=== PATIENT | male | born 1950 | race Two or more races ===

== ENCOUNTER 2017-09-23 13:58 | Emergency (ER) | payer BC ==
[~2017-09-23] VITALS: Ht 167.6 cm; Wt 84.8 kg
[2017-09-23 14:05] VITALS: BP 123/61
== END 2017-09-23 16:40 | disposition home or self-care (01) ==
LOC: ED 13:58
DX: L03.115 Cellulitis of right lower limb (principal); I10 Essential (primary) hypertension; E11.9 Type 2 diabetes mellitus without complications

== ENCOUNTER 2018-12-07 18:07 | Inpatient (IN) | payer OTHER ==
[~2018-12-07] VITALS: Ht 170.2 cm; Wt 87.0 kg
[2018-12-07 20:44] LABS: BASOPHIL % 0.4 % (0-2); PLATELET COUNT 266 x10^3mcL (130-400)
--- NOTE | 2018-12-07 20:48 | NUR ---
PT RESTING IN BED, AAOX4 WITH C/O 4/10 PAIN TO LT LOWER LEG/LT MIGUEL WITH REDNESS/SWELLING X 10 DAYS S/P BEING HIT BY FALLING SHEET METAL WHILE WORKING. PT NOTED WITH AN OPEN ABRASION TO LT MIGUEL/LLE WITH LIGHT BROWN DRAINAGE AND REDNESS WITH SWELLING TO LLE. PT DENIES ANY FEVER/CHILLS, N/V/D/C, RESP ILLNESS, OR URINARY PROBLEMS AT THIS TIME.
[2018-12-07 20:55] LABS: RED CELL DISTRIBUTION WIDTH 14.9 % (11.5-14.5)
[2018-12-07 20:59] LABS: CALCIUM 7.5 mg/dL (8.5-10.1); CARBON DIOXIDE 24.2 mmol/L (21-32); POTASSIUM SERUM 4.6 mmol/L (3.5-5.1)
[2018-12-07 21:04] LABS: BILIRUBIN TOTAL 0.18 mg/dL (0.20-1.00); C REACTIVE PROTEIN 0.5 mg/dL (<=0.9)
[2018-12-07 22:24] LABS: CHOLESTEROL/HDL RATIO 3.5; MAGNESIUM 2.1 mg/dL (1.8-2.4)
--- NOTE | 2018-12-07 22:36 | NUR ---
PT RESTING IN BED WITH FAMILY AT BEDSIDE. NO SIGNS OF DISTRESS.
[2018-12-07] MEDS ORDERED: METFORMIN HYDR500 M1 PO (22:51)
[2018-12-07] MEDS ORDERED: AVAPRO150 MG PO (22:53)
[2018-12-07] MEDS ORDERED: VITAMIN D32000 I2 PO (22:54)
--- NOTE | 2018-12-07 23:20 | NUR ---
REPORT GIVEN TO ARYA NIEVES.
[2018-12-08 00:17] VITALS: BP 167/88
--- NOTE | 2018-12-08 00:31 | NUR ---
RECEIVED PT FROM ER, PT ADMIT FOR LEFT LEG CELLULITIS, PT IS A/O X4, VERBAL RESPONSIVE, LUNG SOUND CLEAR BILATERAL,NO COUGH, NO SOB, PT DENY ANY CHEST PAIN OR DISCOMFORT, BOWEL SOUND PRESENT ALL 4 QUADRANTS, NO DISTENTION, NO TENDER. PEDAL PULSE PRESENT BOTH FEET, +1 RLE, +2 LLE, THERE IS OPEN ABRASION AT LEFT LOWER LEG SURROUND WITH ERYTHEMA, NO DRAINAGE NOTED. RLE HAS DARK DISCOLORATION. IV AT LEFT FA, NO LEAKING, NO INFILTRAITON. ALL ADSL ASSIST, ALL NEED MET, CALL LIGHT IN REACH, WILL CONTINUE TO MONITOR.
--- NOTE | 2018-12-08 01:25 | NUR ---
IVF NS STARTED @ 100CC/HR IV ACCESS LFA PATENT NON INFIL, PT DENIES PAIN, NO DISTRESS, AMBULATES TO THE BATHROOM SLOW BUT STEADY GAIT, CONT TO MONITOR.
--- NOTE | 2018-12-08 04:08 | NUR ---
PT ASLEEP NO S/SX OF PAIN OR DISCOMFORTS, BLE ELEVATED WITH PILLOWS, CHECKED AT INTERVALS.
--- NOTE | 2018-12-08 06:56 | NUR ---
NO SIGNIFICANT CHANGE DURING THE SHIFT, WILL ENDORSE TO INCOMING SHIFT FOR F/U CARE.
[2018-12-08 07:02] LABS: CALCIUM 7.6 mg/dL (8.5-10.1); CARBON DIOXIDE 24.3 mmol/L (21-32); CREATININE SERUM 1.5 mg/dL (0.7-1.3); POTASSIUM SERUM 4.9 mmol/L (3.5-5.1)
[2018-12-08 07:03] LABS: BASOPHIL % 0.3 % (0-2); PLATELET COUNT 253 x10^3mcL (130-400)
--- NOTE | 2018-12-08 07:10 | NUR ---
RECEIVED REPORT FROM ARYA RN, PT IN BED W/ NO ACUTE DISTRESS
--- NOTE | 2018-12-08 07:16 | NUR ---
PT IN BED, AXOX4. VERBAL, ABLE TO MAKE NEEDS KNOWN, CALM AND COOPERATIVE, LIAN, NO FACIAL DROOP/SLUURED SPEECH, RESP EVEN, NO SOB/COUGH AT THIS TIME, CHEST RISE SYMMETRICALLY, DENIED CP/WATERS/PALPITATION, DENIED N/V/D, MEDSURG, ABD ROUND AND NON-TENDER TO TOUCH, PALP PULSES, CAP REFILL <3S, +1 EDEMA TO RLE, +2 EDEMA TO LLE, INCONTINENT, AMBULATORY W/ ASSIST, IV PATENT AND INFUSING WELL, DRESSING CDI, SKIN D/W/C, SEE SKIN ASSESSMENT, FAMILY AT BEDSIDE, ALL NEEDS ADDRESSED AT THIS TIME, SAFETY PROTOCOL FOLLOWED, CONTINUE TO MONITOR
--- NOTE | 2018-12-08 07:16 | NUR ---
PT CONTINENT, BRP W/ MINIMAL ASSISTANCE
[2018-12-08 07:17] LABS: RED CELL DISTRIBUTION WIDTH 14.8 % (11.5-14.5)
[2018-12-08 08:52] VITALS: BP 158/74
--- NOTE | 2018-12-08 09:48 | NUR ---
AM MED GIVEN PER EMAR, TOLERATD WELL, NO ASE NTOED AT THIS TIME, EDUCATION R/T MED AND ASE GIVEN , VERBALLY UNDERSTANDING, CONTINUE TO MONITOR
--- NOTE | 2018-12-08 11:56 | NUR ---
PT AMBULATED ALONG THE HALLWAY W/ FAMILY, IV TEMPORARILY HEPLOCKED PER PT REQUESTED
--- NOTE | 2018-12-08 15:30 | NUR ---
VOID X 1, AMBUALTORY ON HALLWAY W/ FAMILY, IN NO ACUTE DISTRESS
[2018-12-08 17:08] VITALS: BP 161/87
--- NOTE | 2018-12-08 17:23 | NUR ---
PT RESTING IN BED, VERBAL, LIBERIAN, FAMILY AT BEDSIDE, ABLE TO MAKE NEEDS KNOWN, RESP EVEN, NO SOB/COUGH, DENIEC CP/WATERS/PALPITATION, DENIEC N/V/D, AMBULATORY, CONTINENT, IV PATENT AND INFUSIGN WELL, ALL NEEDS ADDRESSED AT THIS TIME, SAFETY PROTOCOL FOLLOWED, WILL ENDORSE TO ONCOMING RN
--- NOTE | 2018-12-08 19:13 | NUR ---
PT HAD WOUND CARE DONE AT BEDSIDE, TOLERATED WELL, REPORTED NO PAIN/DISCOMFORT, FEET ELEVATED ON PILLOWS, SCDs APPLIED, COMFORT IN BED, IN NO ACUTER DISTRESS, DR NUGENT CALLED BACK R/T FAMILY REQUEST OF US RENAL TEST DURING STAY FOR KIDNEY FX CHECK, SAID WILL ENDORSE TO THE [facility] TO F/U TOMORROW MORNING, FAMILY AND PT MADE AWARE, CHARGE NURSE RODERICK MADE AWARE
--- NOTE | 2018-12-08 19:47 | NUR ---
AAO X4 VERBAL DIVEHI SPEAKING ONLY DENIES PAIN NO DISTRESS LUNGS CTA, SATURATING 98% RA, AMBULATES SLOWLY STEADY BALANCE, INTACT DRESSING TO LT LOWER LEG NO SIGNS OF DRAINAGE, BLE ELEVATED WITH PILLOW, CONT ON ATB IV ORDERED NO ADV REACTION, SHIFT ASSESSMENT DONE, UPDATED CURRENT TX PLAN, AWARE OF CURRENT MEDS CONSULT DIET AND TX ORDER, FAMILY AT BEDSIDE FOR VISIT, CONT TO MONITOR, CALL LIGHT AT REACH.
[2018-12-08 20:56] VITALS: BP 157/68
--- NOTE | 2018-12-08 22:50 | NUR ---
PT ASLEEP HANGED IV ATB VANCOMYCIN ORDERED, NO ADV REACTION, CHECKED AT INTERVALS.
[2018-12-09 06:15] VITALS: BP 154/81
[2018-12-09 06:41] LABS: BASOPHIL % 0.4 % (0-2); PLATELET COUNT 258 x10^3mcL (130-400)
[2018-12-09 06:47] LABS: CALCIUM 7.7 mg/dL (8.5-10.1); CARBON DIOXIDE 24.4 mmol/L (21-32); CHLORIDE SERUM 111 mmol/L (98-107); CREATININE SERUM 1.2 mg/dL (0.7-1.3); GFR1 > 60 mL/min; GLUCOSE SERUM 109 mg/dL (74-106); MAGNESIUM 1.9 mg/dL (1.8-2.4); PHOSPHOROUS 3.1 mg/dL (2.5-4.9); POTASSIUM SERUM 4.9 mmol/L (3.5-5.1); SODIUM SERUM 141 mmol/L (136-145)
--- NOTE | 2018-12-09 06:55 | NUR ---
NO SIGNIFICANT CHANGE OF CONDITION DURING THE SHIFT, SLEPT WELL, IVF INFUSING IV ATB ADMIN ORDERED NO ADV REACTION, ENCOURAGED TO ELEVATE BLE WITH PILLOWS AMBULATES TO THE BATHROOM, WILL ENDORSE TO INCOMING SHIFT FOR F/U CARE.
[2018-12-09 06:56] LABS: RED CELL DISTRIBUTION WIDTH 14.9 % (11.5-14.5)
--- NOTE | 2018-12-09 07:10 | NUR ---
RECEIVED REPORT FROM ARYA NIEVES, PT SLEEPING IN BED, IN NO APPARENT ACUTE DISTRESS
--- NOTE | 2018-12-09 07:30 | NUR ---
PT IN BED, AXOX4. VERBAL, [place], ABLE TO MAKE NEEDS KNOWN, CALM AND COOPERATIVE, PERRLA, NO FACIAL DROOP/SLURRED SPEECH, RESP EVEN, NO SOB/COUGH AT THIS TIME, RA, CHEST RISE SYMMETRICALLY, DENIED CP/WATERS/PALPITATION, DENIED N/V/D, MEDSURG, ABD ROUND AND NON-TENDER TO TOUCH, PALP PULSES, CAP REFILL <3S, +1 EDEMA TO RLE, +2 EDEMA TO LLE, CONTINENT, AMBULATORY W/ MINIMAL ASSIST, IV PATENT AND INFUSING WELL, DRESSING CDI, SKIN D/W/C, SEE SKIN ASSESSMENT, SCDs, FAMILY AT BEDSIDE, ALL NEEDS ADDRESSED AT THIS TIME, SAFETY PROTOCOL FOLLOWED, CONTINUE TO MONITOR
--- NOTE | 2018-12-09 08:46 | NUR ---
PT REPORTED (L) LEG PAIN R/T WOUND, 09/03, DULL, MEDICATED PER PRN EMAR, TAKEN WELL, EDUCATED R/T ASE AND MED, VERBALLY UNDERSTANDING, RESTING IN BED, AT BEDSIDE, CONTINUE TO MONITOR
[2018-12-09 08:48] VITALS: BP 136/73
--- NOTE | 2018-12-09 09:04 | NUR ---
AM MED GIVEN PER EMAR, TOLERATD WELL, NO ASE NTOED AT THIS TIME, EDUCATION R/T MED AND ASE GIVEN , VERBALLY UNDERSTANDING, CONTINUE TO MONITOR
--- NOTE | 2018-12-09 09:17 | NUR ---
SEEN BY SUPERINTENDENT CUSTODIAN JANITOR ELIAN JOSEPH, REPORTED TO SUPERINTENDENT CUSTODIAN JANITOR R/T PT AND FAMILY REQUEST FOR F/U US RENAL FX DURING STAY, SUPERINTENDENT CUSTODIAN JANITOR SAID PT WILL F/U W/ US RENAL FX AFTER DC HOME OUTPATIENT SERVICE W/ PCP, NOT DURING HOSPITALIZATION, PT AND FAMILY MADE AWARE, CHARGE NURSE BAN MADE AWARE
--- NOTE | 2018-12-09 11:31 | NUR ---
IV TO LFA NOTED INFILTRATED, NO REDNESS/INFLAMATION NOTED AT SITE, IV REMOVED, IV CATH TIP INTACT, NO ACTIVE BLEEDING NOTED, NEW IV STARTED TO RFA, 22G, PATENT AND INFUSING WELL, NO INFILTRATION NOTED AT THIS TIME, PT AND FAMILY MADE AWARE, CONTINUE IV THERAPY DAHLIA EMAR
--- NOTE | 2018-12-09 12:36 | NUR ---
VOID X 1, PT AMBULATED ON HALLWAY W/ FAMILY, IN NO ACUTE DISTRESS, DRESSING CDI, SKIN C/D/W
[2018-12-09 16:39] VITALS: BP 178/79
--- NOTE | 2018-12-09 17:05 | NUR ---
PT HAD WOUND CARE DONE AT BEDSIDE, TOLERATED WELL, REPORTED NO PAIN/DISCOMFORT, FEET ELEVATED ON PILLOWS, SCDs APPLIED, COMFORT IN BED, IN NO ACUTER DISTRESS, PIC OF WOUND TAKEN AND KEPT IN CHART
--- NOTE | 2018-12-09 17:32 | NUR ---
BP NOTED 175/79 (110), 63, 97.7, 99% AT RA, 18, 0/10, PRN MED MEDICATED PER EMAR, TOLERATED WELL, EDUCATION R/T PRN MED AND ASE GIVEN PT PT AND FAMILY AT BEDSIDE, VERBALLY UNDERSTANDING, NO FURTHER CONCERN NEEDED AT THIS TIME, CONTINUE TO MONITOR
--- NOTE | 2018-12-09 17:48 | NUR ---
PT RESTING IN BED, MOVED TO ROOM 251B, PT AND FAMILY AWARE, VERBAL, [place], FAMILY AT BEDSIDE, ABLE TO MAKE NEEDS KNOWN, RESP EVEN, NO SOB/COUGH, DENIED CP/WATERS/PALPITATION, DENIEC N/V/D, AMBULATORY, CONTINENT, IV PATENT AND INFUSING WELL, ALL NEEDS ADDRESSED AT THIS TIME, SAFETY PROTOCOL FOLLOWED, WILL ENDORSE TO ONCOMING RN
[2018-12-09 19:16] VITALS: BP 166/67
[2018-12-09 19:57] VITALS: BP 156/74
--- NOTE | 2018-12-09 20:19 | NUR ---
SHIFT REASSESSMENT DONE.PATIENT ALERT AND ORIENTED.MAKE NEEDS KNOWN,LOTS OF FAMILY MEMBER AT BEDSIDE.MEDSURG PATIENT.LLE ABRASION,RLE DISCOLORATIN,WOUND CULTURE PENDING RESULT.ELEVATED FEET.VOIDING/BRP.CALL LIGHT IN REACH.IVF INFUSING.IV SITE LFA.PATENT.CALL LIGHT IN REACH.
--- NOTE | 2018-12-09 23:34 | NUR ---
ALL PM MEDS GIVEN WITH NO INCIDENT,BLOOD SUGAR GOOD.ATB SCHEDULE GIVEN.
--- NOTE | 2018-12-10 03:16 | NUR ---
CHECKED AT INTERVALS FOR NEEDS AND SAFETY.
[2018-12-10 04:38] VITALS: BP 160/83
--- NOTE | 2018-12-10 05:06 | NUR ---
BRP RESTROOM,NO INCIDENT.IVF INFUSING WELL.
--- NOTE | 2018-12-10 06:04 | NUR ---
PATIENT BP 160/83.GIVEN APRESOLINE,PROTOCOL,WILL RECHECKED AFTER.
--- NOTE | 2018-12-10 06:32 | NUR ---
LATEST BP 149/80.NO SYMPTOMS PRESENTED
[2018-12-10 06:34] VITALS: BP 149/80
--- NOTE | 2018-12-10 06:35 | NUR ---
I AND O MEASURED.NO DISTRESS THIS SHIFT.WILL ENDORSE TO NEXT SHIFT.
[2018-12-10 06:38] LABS: BASOPHIL % 0.7 % (0-2); PLATELET COUNT 262 x10^3mcL (130-400)
[2018-12-10 06:47] LABS: CARBON DIOXIDE 24.2 mmol/L (21-32); CHLORIDE SERUM 112 mmol/L (98-107); CREATININE SERUM 1.1 mg/dL (0.7-1.3); GFR1 > 60 mL/min; GLUCOSE SERUM 107 mg/dL (74-106); POTASSIUM SERUM 4.8 mmol/L (3.5-5.1); SODIUM SERUM 144 mmol/L (136-145)
[2018-12-10 06:53] LABS: RED CELL DISTRIBUTION WIDTH 14.8 % (11.5-14.5)
[2018-12-10 08:34] VITALS: BP 147/72
--- NOTE | 2018-12-10 14:38 | NUR ---
I SPOKE TO CLASSIFICATIONS OFFICER CC/CM ON THE PHONE DUE TO HIGH BP, SHE ADVISED TO CONTINUE WITH PRN MEDICATION AND MONITOR, MEDICATION GIVEN TO PT, WILL CONTINUE TO MONITOR.
[2018-12-10 16:30] VITALS: BP 168/78
--- NOTE | 2018-12-10 17:19 | NUR ---
Discount pharmacy card and list to low cost medical clinics given to patient by Minnie.
--- NOTE | 2018-12-10 19:30 | NUR ---
REPORT GIVEN TO FILTER CLEANER NURSE, CARE ENDORSED
--- NOTE | 2018-12-10 19:35 | NUR ---
RECEIVED PT FROM DAY SHIFT RN. PT AAOX4 DENIES WATERS/DIZZIENSS. PT BREATHING EVEN AND UNLABORED ON RA. NO SOB NOTED. MED SURG PT DENIES CHEST PAIN/PRESSURE. IV RH PATENT, INFUSING WELL. NO SIGNS OF INFILTRATION PT GENERALIZED WEAKNESS NOTED, AMBULATORY. LEFT LEG COVERED WITH DRESSING, NO DRAINAGE NOTED. BLE EDEMA NOTED, ELEVATED ON PILLOWS. ABD SOFT/ROUND, ACTIVE BOWEL SOUNDS. DENIES ABD PAIN/N/V. NO SIGNS OF DISTRESS NOTED. CALL BUTTON WITHIN REACH. SAFETY PRECAUTIONS IN PLACE. FAMILY AT BEDSIDE. WILL CONTINUE TO MONITOR.
[2018-12-10 19:37] VITALS: BP 189/80
--- NOTE | 2018-12-10 20:12 | NUR ---
PT BP IS 189/[address] NICHOLE MADE AWARE PT DOES NOT HAVE ANY BP MEDS DUE AT THIS TIME. AWAITING NEW ORDER.
[2018-12-10 22:45] VITALS: BP 175/56
--- NOTE | 2018-12-11 02:00 | NUR ---
ROUNDS MADE. PT RESTING. NO SIGNS OF DISTRESS NOTED. CALL BUTTON WITHIN REACH. SAFETY PRECAUTIONS IN PLACE. WILL MONITOR.
[2018-12-11 02:02] VITALS: BP 139/75
[2018-12-11 05:38] VITALS: BP 153/71
[2018-12-11 06:13] LABS: BASOPHIL % 0.5 % (0-2); PLATELET COUNT 282 x10^3mcL (130-400)
--- NOTE | 2018-12-11 06:15 | NUR ---
PT SLEPT MOST OF THE NIGHT WITH NO SIGNS OF DISTRESS. PT IV PATENT, INFUSING WELL. MEDICATED PER EMAR. PT AMBULATORY WITH BRP. PT DENIES ANY PAIN/DISTRESS. NO SIGNS OF DISTRESS. CALL BUTTON WITHIN REACH. SAFETY PRECAUTIONS IN PLACE. WILL MONITOR AND ENDORSE CARE TO DAY SHIFT RN.
[2018-12-11 06:30] LABS: RED CELL DISTRIBUTION WIDTH 14.6 % (11.5-14.5)
[2018-12-11 06:34] LABS: CALCIUM 7.7 mg/dL (8.5-10.1); CARBON DIOXIDE 26.2 mmol/L (21-32); CHLORIDE SERUM 110 mmol/L (98-107); CREATININE SERUM 1.1 mg/dL (0.7-1.3); GFR1 > 60 mL/min; GLUCOSE SERUM 112 mg/dL (74-106); POTASSIUM SERUM 4.3 mmol/L (3.5-5.1); SODIUM SERUM 142 mmol/L (136-145)
--- NOTE | 2018-12-11 07:20 | NUR ---
RECEIVED PT FROM LOGISTICS MANAGEMENT SPECIALIST NURSE. PT RESTING IN BED, AOX4, RESP E/U ON RA. DENIES PAIN AT THIS TIME, NO ACUTE DISTRESS NOTED. IV TO R HAND W/ NO SIGNS OF INFILTRATION, IVF INFUSING WELL. DRESSING TO LLE CDI, SCD TO R LEG. BED IN LOWEST POSITION AND CALL LIGHT WITHIN REACH. WILL CONTINUE TO MONITOR.
--- NOTE | 2018-12-11 07:29 | NUR ---
PT AWAKE DENIES ANY PAIN. NO SIGNS OF DISTRESS. CALL BUTTON WITHIN REACH. ENDORSED CARE TO DAY SHIFT RN, ALL QUESTIONS ADDRESSED.
[2018-12-11 08:45] VITALS: BP 142/84
--- NOTE | 2018-12-11 12:28 | NUR ---
PT RESTING IN BED, AOX4, RESP E/U ON RA. DENIES PAIN AT THIS TIME, NO ACUTE DISTRESS NOTED. DRESSING TO L LEG CDI, ELEVATED ON PILLOW. BED IN LOWEST POSITION AND CALL LIGHT WITHIN REACH. WILL CONTINUE TO MONITOR.
[2018-12-11] MEDS ORDERED: CLEOCIN HCL150 MG PO (12:43)
[2018-12-11] MEDS ORDERED: BACDS PO (13:07)
[2018-12-11] MEDS ORDERED: CEPHALEXIN500 MG PO (13:08)
[2018-12-11 13:09] VITALS: BP 142/84
[2018-12-11 13:24] VITALS: BP 142/84
[2018-12-11 14:42] VITALS: BP 168/78
--- NOTE | 2018-12-11 16:27 | NUR ---
PT DISCHARGED. REVIEWED VISIT SUMMARY, EDUCATIONAL PACKET, MED RX, FOLLOW UP INSTRUCTIONS AND WOUND CARE TEACHING. PT AOX4, RESP E/U, VS STABLE, DENIES PAIN. IV TO R HAND REMOVED, CATH INTACT, GAUZE DRESSING APPLIED. WOUND CARE SUPPLIES PROVIDED TO PT. AMBULATORY TO DISCHARGE OFFICE W/ NO ACUTE INCIDENCE, ESCORTED BY MAKENZIE WAGGONER.
== END 2018-12-11 16:20 | disposition home or self-care (01) | DRG 602 ==
LOC: ED 18:07 → MU 21:55
PROVIDERS: Emergency Medicine; ADMIT Internal Medicine
DX: L03.116 Cellulitis of left lower limb (principal); N17.0 Acute kidney failure with tubular necrosis; S80.812S Abrasion, left lower leg, sequela; E11.9 Type 2 diabetes mellitus without complications; I10 Essential (primary) hypertension; Z79.84 Long term (current) use of oral hypoglycemic drugs; W20.8XXS Other cause of strike by thrown, projected or falling object, sequela
CPT/HCPCS: 82962; 83880; 97116-GP; G0378; J0690; J0696; J1644; J3370; J7030; J7060; Q0092